=== PATIENT | female | born 1955 | race Caucasian/White ===

== ENCOUNTER → 2018-12-01 | Outpatient (CLI) | payer MEDICARE, BC ==
--- NOTE | 2018-12-01 17:38 | KCIC ---
Bilateral digital screening mammograms: Reason for examination: Routine screening. Comparison is made to previous study dated 01/23/2015. Interpretation was made with the benefit of CAD. The skin and nipples show no abnormalities. There does appear to be 13 mm lymph node in the left axilla which shows interval enlargement since previous exam. Recommend clinical correlation. The breast parenchyma shows scattered fibroglandular density. (Breast density: Category B.) There are no dominant masses, suspicious calcifications or architectural distortions. Impression: Prominent lymph node measuring 13 mm in size in the left axilla. Recommend clinical correlation. Follow-up with ultrasound may be of benefit. BI-RADS Category 0: Incomplete. Needs additional imaging evaluation "Our facility is accredited by the [employer] Mammography Program." This patient's information has been entered into a reminder system for the patient to be notified with the results of her examination and a target date for the next mammogram. Electronically signed by: Liz Sung MD (12/01/2018 5:35 PM) [id number]
== END | disposition home or self-care (01) ==
LOC: KCIC MAMMO 10:05
PROVIDERS: ATTEND Family Medicine
DX: Z12.31 Encounter for screening mammogram for malignant neoplasm of breast (principal)
CPT/HCPCS: 77067